=== PATIENT | female | born 1940 | race Caucasian/White ===

== ENCOUNTER → 2019-02-21 13:36 | Outpatient (CLI) | payer MEDICARE, OTHER, SELFPAY ==
--- NOTE | 2019-02-21 | DI.ECHO.S_ITS ---
[facility] +---------+ : : [address] : [place] : : : : [id number] : : : : Phone: [phone]+ Echocardiogram Report + + :Name: AYSE HOLLAND Study Date: 02/21/2019 Height: 64 in : :[facility] Weight: 172 lb : : Gender: Female BSA: 1.8 m2 : :: 1940 Age: 79 yrs BP: 190/102 mmHg: :Reason For Study: SOB : : Performed By: Promise Coreas : :Referring: Dr. Gee Pradhan : + + Interpretation Summary Sinus tachycardia; heart rate 98-103 bpm during the study. Severe hypertension without associated symptoms noted at the beginning of the study (190/102 mm Hg). Normal LV size; severe concentric LVH; normal wall motion and LV systolic function. EF is 65-70%. 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 Aortic valve leaflets are mildly calcified. No prior study available for comparison. Procedure: A two-dimensional transthoracic echocardiogram with color flow and Doppler was performed. The study quality was technically adequate. There is no prior echocardiogram noted for this patient. The heart rate ranged between 98-103 bpm during the study. Left Ventricle: The left ventricle is normal in size. Left ventricular wall thickness is moderate-severely increased. The ejection fraction is estimated to be 65-70%. Diastolic function could not be accurately assessed due to tachycardia. Right Ventricle: The right ventricle grossly appears normal in size with probable normal systolic function. Atria: The left atrial size is normal. Right atrial size is normal. The interatrial septum is intact with no evidence for an atrial septal defect. Mitral Valve: The mitral valve is grossly normal. There is mild to moderate mitral annular calcification. There is no mitral regurgitation noted. Aortic Valve: The aortic valve is trileaflet. The aortic valve opens well. The aortic valve is mildly calcified. No aortic regurgitation is present. Tricuspid Valve: The tricuspid valve leaflets are thin and pliable. There is a trace or physiologic amount of tricuspid regurgitation. The right ventricular systolic pressure is estimated to be at least 21 mmHg based on an estimated right atrial pressure of 3 mm Hg. Pulmonic Valve: The pulmonic valve is not well visualized. Great Vessels: The aortic root is normal size. The dimensions of the ascending aorta are normal. The aortic arch is normal in size. The IVC is of normal diameter and collapses greater than 50% with a sniff. This suggests a low right atrial pressure of 3 mm Hg. Pericardium/ Pleura There is no pericardial effusion. There is no pleural effusion. MMode/2D Measurements & Calculations LVIDd: 3.2 cm Ao root diam: 3.2 cm LVIDs: 2.1 cm Aortic Jxn: 2.2 cm FS: 34.0 % asc Aorta Diam: 3.4 cm EPSS: 0.65 cm Ao Arch Diam (Prox Trans): 1.8 cm IVSd: 1.6 cm LVPWd: 1.5 cm LV jacinto. diameter/BSA (cm/m^2): 1.8 LV sys. diameter/BSA (cm/m^2): 1.2 LA dimension: 3.3 cm RA long axis: 4.7 cm LA A2 area: 21.0 cm2 RA area: 15.1 cm2 LA A4 area: 18.6 cm2 RA vol: 40.9 ml LA length (vol): 4.7 cm RA : 22.3 ml/m2 LA vol: 71.2 ml IVC diam: 1.4 cm LA vol index: 38.8 ml/m2 RVDd major: 5.3 cm RVD1 (basal): 3.6 cm RVD2 (mid): 3.3 cm Doppler Measurements & Calculations Ao V2 max: 229.3 cm/sec TR max chilo: 211.8 cm/sec Ao V2 mean: 144.2 cm/sec TR max P.9 mmHg Ao max P.0 mmHg PA V2 max: 123.2 cm/sec Ao mean P.2 mmHg PA V2 mean: 83.2 cm/sec Ao V2 VTI: 35.2 cm PA mean P.2 mmHg PA Accel Time: 0.10 sec MV V2 mean: 76.2 cm/sec MV mean P.8 mmHg MV V2 VTI: 23.2 cm Electronically signed by: Ginette Malin M.D. on Reading Physician:02/24/2019 12:14 AM
== END ==
PROVIDERS: Family Provider Family Medicine; PCP Family Medicine; Visit Provider Specialist
DX: R06.02 Shortness of breath (principal)
CPT/HCPCS: 93306